=== PATIENT | female | born 1940 | race Caucasian/White ===

== ENCOUNTER 2021-09-05 09:44 | Emergency (ER) | payer MEDICARE, BC ==
[2021-09-05 10:40] LABS: BLOOD UREA NITROGEN,BUN 16 mg/dL (7.0-18.0); CARBON DIOXIDE,CO2 27.1 mmol/L (21.0-32.0); CHLORIDE,CL 104 mmol/L (98-107); GLUCOSE RANDOM 86 mg/dL (74-106); POTASSIUM,K 3.7 mmol/L (3.5-5.1); SODIUM,NA 141 mmol/L (136-145)
[2021-09-05] MEDS: Sodium Chloride 0.9% 2.5 ML Syringe FLUSH PRN (10:40)
[2021-09-05] MEDS: Sodium Chloride 0.9% 10 ML Syringe FLUSH PRN (10:42)
[2021-09-05 10:48] LABS: CORONAVIRUS COVID-19 NAA NEGATIVE (NEGATIVE); INFLUENZA A NAA NEGATIVE (NEGATIVE); INFLUENZA B NAA NEGATIVE (NEGATIVE)
[2021-09-05] MEDS: Albuterol/Ipratropium 3.0-0.5 MG/3 ML Neb Soln NEB ONE (11:24)
[2021-09-05] MEDS: Acetaminophen 325 MG Tab PO ONE (11:52)
[2021-09-05] MEDS: methylPREDNISolone Sodium Succinate 125 MG/2 ML SDV IVPUSH ONE (12:36)
[2021-09-05] MEDS: Albuterol 0.5% 5 MG/ML Neb Soln 20 ML Bottle NEB ONE (12:40)
== END 2021-09-05 14:18 | disposition home or self-care (01) ==
LOC: MW.ED 09:44
DX: J20.9 Acute bronchitis, unspecified (principal); I48.91 Unspecified atrial fibrillation; F17.200 Nicotine dependence, unspecified, uncomplicated; Z79.01 Long term (current) use of anticoagulants; Z79.899 Other long term (current) drug therapy; Z20.822 Contact with and (suspected) exposure to COVID-19
CPT/HCPCS: 0240U; 36415; 71045; 71275; 80053; 83880; 84484; 85025; 85379; 96374; 99285; A9270; J2930; J7620-GY

== ENCOUNTER 2023-07-17 16:54 | Inpatient (IN) | payer MEDICARE, BC ==
[2023-07-17] MEDS ORDERED: Diltiazem 100 MG in Sodium Chloride 0.9% 100 ML IV SCH (17:15)
[2023-07-17 17:17] LABS: HEMATOCRIT 42.8 % (37.0-47.0); HEMOGLOBIN 14.4 g/dL (12.0-16.0); MEAN CORPUSCULAR HEMOGLOBIN 35.8 pg (28.0-32.0); MEAN CORPUSCULAR HGB CONC 33.6 g/dL (32.0-36.0); MEAN CORPUSCULAR VOLUME 106.5 fL (83.0-99.0); MEAN PLATELET VOLUME 9.4 fL (9.4-12.3); PLATELET COUNT,PLT 215 K/uL (150-400); RED BLOOD CELL COUNT 4.02 M/uL (4.10-5.30); WHITE BLOOD CELL COUNT,WBC 20.93 K/uL (3.9-11.3)
[2023-07-17 17:24] LABS: INR 1.05 (0.86-1.11)
[2023-07-17] MEDS ORDERED: Diltiazem 25 MG/5 ML SDV IVPUSH ONE ×2 (17:53→17:54)
[2023-07-17] MEDS ORDERED: Sodium Chloride 0.9% 1,000 ML IV ONE (17:55)
[2023-07-17] MEDS ORDERED: cefTRIAXone 1 GM in Sodium Chloride 0.9% 50 ML IV ONE (17:55)
[2023-07-17 18:10] LABS: LACTIC ACID 3.5 mmol/L (0.4-2.0)
[2023-07-17] MEDS ORDERED: Magnesium Sulfate/Water 2 GM in Premix Bag 1 BAG IV ONE (18:28)
[2023-07-17 18:31] LABS: BAND ABSOLUTE MAN 0.84; BAND PERCENT MAN 4 %; LYMPHOCYTES ABSOLUTE MAN 2.09 K/uL (1.00-4.80); LYMPHOCYTES PERCENT MAN 10 % (24-44); MONOCYTES ABSOLUTE MAN 0.84 K/uL (0.00-0.80); MONOCYTES PERCENT MAN 4 % (0-8); SEG NEUTROPHILS ABSOLUTE MAN 17.16 K/uL (1.80-7.70); SEG NEUTROPHILS PERCENT MAN 82 % (41-71)
[2023-07-17] MEDS ORDERED: Azithromycin 500 MG in Sodium Chloride 0.9% 250 ML IV ONE (18:41)
[2023-07-17] MEDS ORDERED: Albuterol/Ipratropium 3.0-0.5 MG/3 ML Neb Soln NEB ONE (18:45)
[2023-07-17 19:13] LABS: A/G RATIO 0.6 (0.9-1.6); ALBUMIN 2.5 g/dL (3.4-5.0); BILIRUBIN TOTAL 1.4 mg/dL (0.2-1.0); CALCIUM 8.7 mg/dL (8.5-10.1); CARBON DIOXIDE,CO2 20.9 mmol/L (21.0-32.0); CREATININE 1.1 mg/dL (0.6-1.0); EST CRCL DRUG DOSING (CG) 30.16 mL/min; MAGNESIUM 2.1 mg/dL (1.8-2.4); POTASSIUM,K 4.5 mmol/L (3.5-5.1); PROTEIN TOTAL,TP 6.7 g/dL (6.4-8.2); TSH ULTRASENSITIVE 2.32 uIU/mL (0.36-3.74)
[2023-07-17 19:40] LABS: CORONAVIRUS COVID-19 NAA NEGATIVE (NEGATIVE); INFLUENZA A NAA NEGATIVE (NEGATIVE); INFLUENZA B NAA NEGATIVE (NEGATIVE); RESPIRATORY SYNCYTIAL VIR NAA NEGATIVE (NEGATIVE)
[2023-07-17] MEDS ORDERED: Albuterol/Ipratropium 3.0-0.5 MG/3 ML Neb Soln NEB PRN (19:50)
[2023-07-17 19:53] LABS: APPEARANCE,URINE SLT CLOUDY; COLOR,URINE YELLOW; GLUCOSE,URINE NEGATIVE (NEGATIVE); KETONES,URINE 15 mg/dL (NEGATIVE); LEUKOCYTE ESTERASE,URINE NEGATIVE (NEGATIVE); NITRITE,URINE NEGATIVE (NEGATIVE); OCCULT BLOOD,URINE SMALL (NEGATIVE); PH,URINE 5.5 (5.0-8.0); PROTEIN,URINE 100 mg/dL (NEGATIVE); UROBILINOGEN,URINE 0.2 EU/dL (<2.0)
[2023-07-17] MEDS ORDERED: Piperacillin/Tazobactam 4.5 GM in Sodium Chloride 0.9% 100 ML IV SCH (20:00)
[2023-07-17 20:19] LABS: BILIRUBIN,URINE SMALL (NEGATIVE)
[2023-07-17 20:20] LABS: BACTERIA,URINE 2+ (NEGATIVE); EPITHELIAL CELLS,URINE FEW (NONE-FEW); MUCUS,URINE LIGHT (NONE-MOD)
[2023-07-17 20:21] LABS: HYALINE CASTS,URINE 0-2 (0-2/LPF)
[2023-07-17] MEDS ORDERED: Sodium Chloride 0.9% 2.5 ML Syringe FLUSH PRN (20:21)
[2023-07-17] MEDS ORDERED: Acetaminophen 650 MG Supp RECTAL PRN (20:21)
[2023-07-17] MEDS ORDERED: Sodium Chloride 0.9% 20 ML SDV IV PRN (20:21)
[2023-07-17] MEDS ORDERED: Acetaminophen 325 MG Tab PO PRN (20:21)
[2023-07-17] MEDS ORDERED: Sodium Chloride 0.9% 10 ML Syringe FLUSH PRN (20:21)
[2023-07-17] MEDS ORDERED: Pantoprazole 40 MG in Sodium Chloride 0.9% 10 ML IVPUSH SCH (20:30)
[2023-07-17] MEDS: Apixaban 5 MG Tab PO SCH (21:12)
[2023-07-17] MEDS: Piperacillin/Tazobactam 3.375 GM in Sodium Chloride 0.9% 100 ML IV SCH (21:29)
[2023-07-17 21:59] LABS: LACTIC ACID 3.2 mmol/L (0.4-2.0)
[2023-07-17] MEDS ORDERED: Digoxin 500 MCG/2 ML Amp IVPUSH ONE (23:54)
[2023-07-17] MEDS ORDERED: Lactated Ringers 600 ML IV ONE (23:57)
[2023-07-18] MEDS: Diltiazem 100 MG in Sodium Chloride 0.9% 100 ML IV SCH ×2 (00:15→08:16)
[2023-07-18] MEDS ORDERED: Metoprolol Tartrate 5 MG/5 ML SDV IVPUSH PRN (01:00)
[2023-07-18] MEDS: Hydrocortisone Sodium Succinate 100 MG/2 ML SDV IVPUSH SCH ×3 (01:07→16:15)
[2023-07-18] MEDS ORDERED: Furosemide 40 MG/4 ML VIAL IVPUSH ONE (01:55)
[2023-07-18] MEDS: Piperacillin/Tazobactam 3.375 GM in Sodium Chloride 0.9% 100 ML IV SCH ×2 (02:22→07:41)
[2023-07-18 05:57] LABS: HEMATOCRIT 38.1 % (37.0-47.0); HEMOGLOBIN 12.5 g/dL (12.0-16.0); MEAN CORPUSCULAR HEMOGLOBIN 35.4 pg (28.0-32.0); MEAN CORPUSCULAR HGB CONC 32.8 g/dL (32.0-36.0); MEAN CORPUSCULAR VOLUME 107.9 fL (83.0-99.0); MEAN PLATELET VOLUME 9.6 fL (9.4-12.3); PLATELET COUNT,PLT 172 K/uL (150-400); RED BLOOD CELL COUNT 3.53 M/uL (4.10-5.30)
[2023-07-18 06:29] LABS: A/G RATIO 0.6 (0.9-1.6); ALBUMIN 2.2 g/dL (3.4-5.0); BILIRUBIN TOTAL 1.3 mg/dL (0.2-1.0); CALCIUM 7.8 mg/dL (8.5-10.1); CARBON DIOXIDE,CO2 22.8 mmol/L (21.0-32.0); CREATININE 1.1 mg/dL (0.6-1.0); EST CRCL DRUG DOSING (CG) 32.2 mL/min; MAGNESIUM 2.3 mg/dL (1.8-2.4); PHOSPHORUS 2.7 mg/dL (2.6-4.7); POTASSIUM,K 4.2 mmol/L (3.5-5.1)
[2023-07-18 06:34] LABS: BAND PERCENT MAN 2 %; LYMPHOCYTES PERCENT MAN 2 % (24-44); MONOCYTES PERCENT MAN 3 % (0-8); SEG NEUTROPHILS PERCENT MAN 93 % (41-71)
[2023-07-18] MEDS ORDERED: Piperacillin/Tazobactam 4.5 GM in Sodium Chloride 0.9% 100 ML IV SCH (08:00)
[2023-07-18] MEDS: Digoxin 250 MCG Tab PO SCH (08:08)
[2023-07-18] MEDS: Apixaban 5 MG Tab PO SCH ×2 (08:08→20:28)
[2023-07-18] MEDS: Azithromycin 500 MG in Sodium Chloride 0.9% 250 ML IV SCH (09:02)
[2023-07-18] MEDS: Diltiazem IR 30 MG Tab PO SCH ×3 (09:02→17:51)
[2023-07-18] MEDS: Tiotropium Bromide 4 GM Inhalation Spray (2.5mcg/1 dose; 10 doses) INH SCH (09:47)
[2023-07-18] MEDS: Formoterol/Mometasone 200-5 MCG 8.8 GM Inhaler INH SCH ×2 (09:48→20:38)
[2023-07-18] MEDS: Albuterol/Ipratropium 3.0-0.5 MG/3 ML Neb Soln NEB SCH ×4 (12:31→21:12)
[2023-07-18] MEDS: Pantoprazole 40 MG Tab.CR PO SCH (20:28)
[2023-07-18] MEDS: Piperacillin/Tazobactam 4.5 GM in Sodium Chloride 0.9% 100 ML IV SCH (20:30)
[2023-07-19] MEDS: Hydrocortisone Sodium Succinate 100 MG/2 ML SDV IVPUSH SCH ×3 (00:12→20:19)
[2023-07-19] MEDS: Diltiazem IR 30 MG Tab PO SCH ×3 (00:13→11:08)
[2023-07-19] MEDS: Albuterol/Ipratropium 3.0-0.5 MG/3 ML Neb Soln NEB SCH ×5 (01:16→21:57)
[2023-07-19] MEDS: Albuterol 0.083% 2.5 MG/3 ML Neb Soln NEB PRN (04:00)
[2023-07-19 06:11] LABS: BASOPHILS ABSOLUTE AUTO 0.06 K/uL (0.00-0.20); BASOPHILS PERCENT AUTO 0.3 % (0.0-1.0); EOSINOPHILS ABSOLUTE AUTO 0.06 K/uL (0.00-0.45); EOSINOPHILS PERCENT AUTO 0.3 % (0.0-6.0); HEMATOCRIT 34.5 % (37.0-47.0); HEMOGLOBIN 11.7 g/dL (12.0-16.0); IMMATURE GRAN ABSOLUTE AUTO 0.17 K/uL (0.00-0.05); IMMATURE GRAN PERCENT AUTO 0.9 % (0.0-0.4); LYMPHOCYTES ABSOLUTE AUTO 0.14 K/uL (1.00-4.80); LYMPHOCYTES PERCENT AUTO 0.8 % (24.0-44.0); MEAN CORPUSCULAR HEMOGLOBIN 35.2 pg (28.0-32.0); MEAN CORPUSCULAR HGB CONC 33.9 g/dL (32.0-36.0); MEAN CORPUSCULAR VOLUME 103.9 fL (83.0-99.0); MEAN PLATELET VOLUME 9.4 fL (9.4-12.3); MONOCYTES ABSOLUTE AUTO 0.65 K/uL (0.00-0.80); MONOCYTES PERCENT AUTO 3.6 % (0.0-8.0); NEUTROPHILS ABSOLUTE AUTO 17.13 K/uL (1.80-7.70); NEUTROPHILS PERCENT AUTO 94.1 % (41.0-71.0); PLATELET COUNT,PLT 188 K/uL (150-400); RED BLOOD CELL COUNT 3.32 M/uL (4.10-5.30); WHITE BLOOD CELL COUNT,WBC 18.21 K/uL (3.9-11.3)
[2023-07-19 06:37] LABS: CALCIUM 7.8 mg/dL (8.5-10.1); CARBON DIOXIDE,CO2 23.7 mmol/L (21.0-32.0); EST CRCL DRUG DOSING (CG) 35.7 mL/min; MAGNESIUM 2.5 mg/dL (1.8-2.4); POTASSIUM,K 3.2 mmol/L (3.5-5.1)
[2023-07-19] MEDS: Piperacillin/Tazobactam 4.5 GM in Sodium Chloride 0.9% 100 ML IV SCH ×2 (07:34→20:20)
[2023-07-19] MEDS ORDERED: Potassium Chloride 20 MEQ Tab.ER PO ONE ×2 (08:03→10:14)
[2023-07-19] MEDS: Apixaban 5 MG Tab PO SCH ×2 (08:25→20:19)
[2023-07-19] MEDS: Digoxin 250 MCG Tab PO SCH (08:25)
[2023-07-19] MEDS: Azithromycin 500 MG in Sodium Chloride 0.9% 250 ML IV SCH (08:25)
[2023-07-19] MEDS: Tiotropium Bromide 4 GM Inhalation Spray (2.5mcg/1 dose; 10 doses) INH SCH (09:06)
[2023-07-19] MEDS: Formoterol/Mometasone 200-5 MCG 8.8 GM Inhaler INH SCH ×2 (09:06→20:23)
[2023-07-19] MEDS: Acetaminophen 325 MG Tab PO SCH ×3 (11:05→21:56)
[2023-07-19] MEDS ORDERED: guaiFENesin 600 MG Tab.ER PO ONE (13:14)
[2023-07-19] MEDS ORDERED: Diltiazem 180 MG Cap.CD PO SCH (13:15)
[2023-07-19] MEDS: Ondansetron 4 MG/2 ML SDV IVPUSH PRN (17:07)
[2023-07-19] MEDS: Diltiazem 180 MG Cap.CD PO SCH (17:08)
[2023-07-19] MEDS ORDERED: Albuterol/Ipratropium 3.0-0.5 MG/3 ML Neb Soln NEB SCH (19:00)
[2023-07-19] MEDS: Pantoprazole 40 MG Tab.CR PO SCH (20:19)
[2023-07-20] MEDS: Acetaminophen 325 MG Tab PO SCH ×4 (04:25→22:25)
[2023-07-20 05:58] LABS: BASOPHILS ABSOLUTE AUTO 0.04 K/uL (0.00-0.20); BASOPHILS PERCENT AUTO 0.2 % (0.0-1.0); HEMOGLOBIN 10.8 g/dL (12.0-16.0); IMMATURE GRAN PERCENT AUTO 1.2 % (0.0-0.4); LYMPHOCYTES ABSOLUTE AUTO 0.25 K/uL (1.00-4.80); LYMPHOCYTES PERCENT AUTO 1.4 % (24.0-44.0); MEAN CORPUSCULAR HEMOGLOBIN 35.5 pg (28.0-32.0); MEAN CORPUSCULAR HGB CONC 33.8 g/dL (32.0-36.0); MEAN CORPUSCULAR VOLUME 105.3 fL (83.0-99.0); MEAN PLATELET VOLUME 9.4 fL (9.4-12.3); MONOCYTES ABSOLUTE AUTO 1.03 K/uL (0.00-0.80); NEUTROPHILS ABSOLUTE AUTO 15.76 K/uL (1.80-7.70); NEUTROPHILS PERCENT AUTO 91.2 % (41.0-71.0); PLATELET COUNT,PLT 177 K/uL (150-400); RED BLOOD CELL COUNT 3.04 M/uL (4.10-5.30); WHITE BLOOD CELL COUNT,WBC 17.28 K/uL (3.9-11.3)
[2023-07-20 06:30] LABS: A/G RATIO 0.5 (0.9-1.6); ALBUMIN 2.1 g/dL (3.4-5.0); BILIRUBIN TOTAL 0.6 mg/dL (0.2-1.0); CALCIUM 7.6 mg/dL (8.5-10.1); CARBON DIOXIDE,CO2 23.4 mmol/L (21.0-32.0); CREATININE 0.8 mg/dL (0.6-1.0); EST CRCL DRUG DOSING (CG) 47.62 mL/min; POTASSIUM,K 4.8 mmol/L (3.5-5.1)
[2023-07-20] MEDS: Albuterol/Ipratropium 3.0-0.5 MG/3 ML Neb Soln NEB SCH (06:44)
[2023-07-20] MEDS: Hydrocortisone Sodium Succinate 100 MG/2 ML SDV IVPUSH SCH (07:24)
[2023-07-20] MEDS: Piperacillin/Tazobactam 4.5 GM in Sodium Chloride 0.9% 100 ML IV SCH ×2 (07:25→15:17)
[2023-07-20] MEDS: Digoxin 250 MCG Tab PO SCH (08:02)
[2023-07-20] MEDS: Diltiazem 180 MG Cap.CD PO SCH (08:02)
[2023-07-20] MEDS: Apixaban 5 MG Tab PO SCH ×2 (08:03→21:15)
[2023-07-20] MEDS: Azithromycin 500 MG in Sodium Chloride 0.9% 250 ML IV SCH (08:03)
[2023-07-20] MEDS: Tiotropium Bromide 4 GM Inhalation Spray (2.5mcg/1 dose; 10 doses) INH SCH (08:46)
[2023-07-20] MEDS: Formoterol/Mometasone 200-5 MCG 8.8 GM Inhaler INH SCH ×2 (08:46→21:16)
[2023-07-20] MEDS ORDERED: Levalbuterol HCl 1.25 MG/3 ML Neb NEB PRN (10:30)
[2023-07-20] MEDS ORDERED: Furosemide 40 MG/4 ML VIAL IVPUSH ONE ×2 (10:49)
[2023-07-20] MEDS: Furosemide 20 MG Tab PO SCH (12:06)
[2023-07-20] MEDS: Albuterol 0.083% 2.5 MG/3 ML Neb Soln NEB PRN (12:07)
[2023-07-20] MEDS: Pantoprazole 40 MG Tab.CR PO SCH (21:15)
[2023-07-21] MEDS: Piperacillin/Tazobactam 4.5 GM in Sodium Chloride 0.9% 100 ML IV SCH ×3 (00:13→16:10)
[2023-07-21] MEDS: Acetaminophen 325 MG Tab PO SCH ×5 (04:02→23:39)
[2023-07-21 06:12] LABS: BASOPHILS ABSOLUTE AUTO 0.02 K/uL (0.00-0.20); BASOPHILS PERCENT AUTO 0.1 % (0.0-1.0); EOSINOPHILS ABSOLUTE AUTO 0.03 K/uL (0.00-0.45); EOSINOPHILS PERCENT AUTO 0.2 % (0.0-6.0); HEMOGLOBIN 10.8 g/dL (12.0-16.0); IMMATURE GRAN ABSOLUTE AUTO 0.11 K/uL (0.00-0.05); IMMATURE GRAN PERCENT AUTO 0.8 % (0.0-0.4); LYMPHOCYTES ABSOLUTE AUTO 0.54 K/uL (1.00-4.80); MEAN CORPUSCULAR HEMOGLOBIN 35.1 pg (28.0-32.0); MEAN CORPUSCULAR HGB CONC 32.7 g/dL (32.0-36.0); MEAN CORPUSCULAR VOLUME 107.1 fL (83.0-99.0); MEAN PLATELET VOLUME 9.4 fL (9.4-12.3); MONOCYTES ABSOLUTE AUTO 1.11 K/uL (0.00-0.80); MONOCYTES PERCENT AUTO 8.1 % (0.0-8.0); NEUTROPHILS ABSOLUTE AUTO 11.85 K/uL (1.80-7.70); NEUTROPHILS PERCENT AUTO 86.8 % (41.0-71.0); PLATELET COUNT,PLT 212 K/uL (150-400); RED BLOOD CELL COUNT 3.08 M/uL (4.10-5.30); WHITE BLOOD CELL COUNT,WBC 13.66 K/uL (3.9-11.3)
[2023-07-21 06:33] LABS: CALCIUM 6.8 mg/dL (8.5-10.1); CARBON DIOXIDE,CO2 25.1 mmol/L (21.0-32.0); CREATININE 0.8 mg/dL (0.6-1.0); EST CRCL DRUG DOSING (CG) 47.62 mL/min
[2023-07-21] MEDS: Albuterol/Ipratropium 3.0-0.5 MG/3 ML Neb Soln NEB PRN (08:14)
[2023-07-21] MEDS: Formoterol/Mometasone 200-5 MCG 8.8 GM Inhaler INH SCH ×2 (08:15→21:01)
[2023-07-21] MEDS: Tiotropium Bromide 4 GM Inhalation Spray (2.5mcg/1 dose; 10 doses) INH SCH (08:16)
[2023-07-21] MEDS: Diltiazem 180 MG Cap.CD PO SCH (08:16)
[2023-07-21] MEDS: Digoxin 125 MCG Tab PO SCH (08:17)
[2023-07-21] MEDS: Apixaban 5 MG Tab PO SCH ×2 (08:17→21:01)
[2023-07-21] MEDS: Furosemide 20 MG Tab PO SCH (08:17)
[2023-07-21] MEDS: predniSONE 20 MG Tab PO SCH (08:17)
[2023-07-21] MEDS: Azithromycin 500 MG in Sodium Chloride 0.9% 250 ML IV SCH (08:18)
[2023-07-21] MEDS: Pantoprazole 40 MG Tab.CR PO SCH (21:01)
[2023-07-22] MEDS: Piperacillin/Tazobactam 4.5 GM in Sodium Chloride 0.9% 100 ML IV SCH ×3 (00:16→16:36)
[2023-07-22 06:33] LABS: BASOPHILS ABSOLUTE AUTO 0.02 K/uL (0.00-0.20); BASOPHILS PERCENT AUTO 0.2 % (0.0-1.0); EOSINOPHILS ABSOLUTE AUTO 0.01 K/uL (0.00-0.45); EOSINOPHILS PERCENT AUTO 0.1 % (0.0-6.0); HEMATOCRIT 33.1 % (37.0-47.0); IMMATURE GRAN ABSOLUTE AUTO 0.12 K/uL (0.00-0.05); IMMATURE GRAN PERCENT AUTO 0.9 % (0.0-0.4); LYMPHOCYTES PERCENT AUTO 6.1 % (24.0-44.0); MEAN CORPUSCULAR HEMOGLOBIN 35.3 pg (28.0-32.0); MEAN CORPUSCULAR HGB CONC 33.2 g/dL (32.0-36.0); MEAN CORPUSCULAR VOLUME 106.1 fL (83.0-99.0); MEAN PLATELET VOLUME 9.6 fL (9.4-12.3); MONOCYTES ABSOLUTE AUTO 0.82 K/uL (0.00-0.80); MONOCYTES PERCENT AUTO 6.3 % (0.0-8.0); NEUTROPHILS ABSOLUTE AUTO 11.33 K/uL (1.80-7.70); NEUTROPHILS PERCENT AUTO 86.4 % (41.0-71.0); PLATELET COUNT,PLT 260 K/uL (150-400); RED BLOOD CELL COUNT 3.12 M/uL (4.10-5.30)
[2023-07-22 07:03] LABS: A/G RATIO 0.5 (0.9-1.6); ALBUMIN 1.9 g/dL (3.4-5.0); BILIRUBIN TOTAL 0.6 mg/dL (0.2-1.0); CALCIUM 7.1 mg/dL (8.5-10.1); CARBON DIOXIDE,CO2 26.3 mmol/L (21.0-32.0); CREATININE 0.7 mg/dL (0.6-1.0); EST CRCL DRUG DOSING (CG) 54.43 mL/min; MAGNESIUM 2.6 mg/dL (1.8-2.4); POTASSIUM,K 3.8 mmol/L (3.5-5.1); PROTEIN TOTAL,TP 5.6 g/dL (6.4-8.2)
[2023-07-22] MEDS: predniSONE 20 MG Tab PO SCH (08:46)
[2023-07-22] MEDS: Furosemide 20 MG Tab PO SCH (08:46)
[2023-07-22] MEDS: Digoxin 125 MCG Tab PO SCH (08:46)
[2023-07-22] MEDS: Diltiazem 180 MG Cap.CD PO SCH (08:46)
[2023-07-22] MEDS: Formoterol/Mometasone 200-5 MCG 8.8 GM Inhaler INH SCH ×2 (08:47→21:26)
[2023-07-22] MEDS: Tiotropium Bromide 4 GM Inhalation Spray (2.5mcg/1 dose; 10 doses) INH SCH (08:47)
[2023-07-22] MEDS: Acetaminophen 325 MG Tab PO PRN (16:34)
[2023-07-22] MEDS: Pantoprazole 40 MG Tab.CR PO SCH (21:26)
[2023-07-23] MEDS: Piperacillin/Tazobactam 4.5 GM in Sodium Chloride 0.9% 100 ML IV SCH ×4 (00:11→23:08)
[2023-07-23] MEDS: Albuterol/Ipratropium 3.0-0.5 MG/3 ML Neb Soln NEB PRN (04:30)
[2023-07-23 06:01] LABS: BASOPHILS ABSOLUTE AUTO 0.04 K/uL (0.00-0.20); BASOPHILS PERCENT AUTO 0.3 % (0.0-1.0); HEMATOCRIT 38.4 % (37.0-47.0); HEMOGLOBIN 12.7 g/dL (12.0-16.0); IMMATURE GRAN ABSOLUTE AUTO 0.18 K/uL (0.00-0.05); IMMATURE GRAN PERCENT AUTO 1.3 % (0.0-0.4); LYMPHOCYTES ABSOLUTE AUTO 1.63 K/uL (1.00-4.80); LYMPHOCYTES PERCENT AUTO 11.8 % (24.0-44.0); MEAN CORPUSCULAR HEMOGLOBIN 34.5 pg (28.0-32.0); MEAN CORPUSCULAR HGB CONC 33.1 g/dL (32.0-36.0); MEAN CORPUSCULAR VOLUME 104.3 fL (83.0-99.0); MEAN PLATELET VOLUME 9.6 fL (9.4-12.3); MONOCYTES ABSOLUTE AUTO 0.83 K/uL (0.00-0.80); NEUTROPHILS ABSOLUTE AUTO 11.13 K/uL (1.80-7.70); NEUTROPHILS PERCENT AUTO 80.6 % (41.0-71.0); PLATELET COUNT,PLT 371 K/uL (150-400); RED BLOOD CELL COUNT 3.68 M/uL (4.10-5.30); WHITE BLOOD CELL COUNT,WBC 13.81 K/uL (3.9-11.3)
[2023-07-23 06:34] LABS: ALBUMIN 2.3 g/dL (3.4-5.0); BILIRUBIN TOTAL 0.7 mg/dL (0.2-1.0); CALCIUM 7.8 mg/dL (8.5-10.1); CARBON DIOXIDE,CO2 25.8 mmol/L (21.0-32.0); CREATININE 0.8 mg/dL (0.6-1.0); EST CRCL DRUG DOSING (CG) 47.62 mL/min; MAGNESIUM 2.6 mg/dL (1.8-2.4); POTASSIUM,K 3.7 mmol/L (3.5-5.1); PROTEIN TOTAL,TP 6.5 g/dL (6.4-8.2)
[2023-07-23 06:47] LABS: A/G RATIO 0.6 (0.9-1.6)
[2023-07-23] MEDS: Digoxin 125 MCG Tab PO SCH (08:40)
[2023-07-23] MEDS: Diltiazem 180 MG Cap.CD PO SCH (08:40)
[2023-07-23] MEDS: Furosemide 20 MG Tab PO SCH (08:40)
[2023-07-23] MEDS: Folic Acid 1 MG Tab PO SCH (08:40)
[2023-07-23] MEDS: Formoterol/Mometasone 200-5 MCG 8.8 GM Inhaler INH SCH ×2 (08:41→20:51)
[2023-07-23] MEDS: predniSONE 20 MG Tab PO SCH (08:41)
[2023-07-23] MEDS: Tiotropium Bromide 4 GM Inhalation Spray (2.5mcg/1 dose; 10 doses) INH SCH (08:41)
[2023-07-23] MEDS ORDERED: Apixaban 5 MG Tab PO SCH (09:00)
[2023-07-23] MEDS: Pantoprazole 40 MG in Sodium Chloride 0.9% 10 ML IVPUSH SCH ×2 (09:59→20:51)
[2023-07-23] MEDS: Sucralfate Suspension 1 GM/10 ML Cup PO SCH ×3 (12:45→20:51)
[2023-07-23] MEDS: methylPREDNISolone Sodium Succinate 40 MG/1 ML SDV IVPUSH SCH (18:33)
[2023-07-23 18:34] LABS: HEMATOCRIT 37.4 % (37.0-47.0); HEMOGLOBIN 12.5 g/dL (12.0-16.0)
[2023-07-23] MEDS: atorvaSTATin 20 MG Tab PO SCH (20:51)
[2023-07-24 06:13] LABS: BASOPHILS ABSOLUTE AUTO 0.01 K/uL (0.00-0.20); BASOPHILS PERCENT AUTO 0.1 % (0.0-1.0); HEMATOCRIT 35.4 % (37.0-47.0); HEMOGLOBIN 11.7 g/dL (12.0-16.0); IMMATURE GRAN ABSOLUTE AUTO 0.16 K/uL (0.00-0.05); IMMATURE GRAN PERCENT AUTO 1.3 % (0.0-0.4); LYMPHOCYTES ABSOLUTE AUTO 0.61 K/uL (1.00-4.80); MEAN CORPUSCULAR HGB CONC 33.1 g/dL (32.0-36.0); MEAN PLATELET VOLUME 9.6 fL (9.4-12.3); MONOCYTES ABSOLUTE AUTO 0.38 K/uL (0.00-0.80); MONOCYTES PERCENT AUTO 3.1 % (0.0-8.0); NEUTROPHILS ABSOLUTE AUTO 11.06 K/uL (1.80-7.70); NEUTROPHILS PERCENT AUTO 90.5 % (41.0-71.0); PLATELET COUNT,PLT 387 K/uL (150-400); RED BLOOD CELL COUNT 3.34 M/uL (4.10-5.30); WHITE BLOOD CELL COUNT,WBC 12.22 K/uL (3.9-11.3)
[2023-07-24] MEDS: Sucralfate Suspension 1 GM/10 ML Cup PO SCH ×5 (06:22→20:55)
[2023-07-24] MEDS: methylPREDNISolone Sodium Succinate 40 MG/1 ML SDV IVPUSH SCH ×2 (06:22→18:13)
[2023-07-24 06:36] LABS: A/G RATIO 0.5 (0.9-1.6); ALBUMIN 1.9 g/dL (3.4-5.0); BILIRUBIN TOTAL 0.5 mg/dL (0.2-1.0); CALCIUM 7.1 mg/dL (8.5-10.1); CARBON DIOXIDE,CO2 26.2 mmol/L (21.0-32.0); CREATININE 0.7 mg/dL (0.6-1.0); EST CRCL DRUG DOSING (CG) 54.43 mL/min; MAGNESIUM 2.5 mg/dL (1.8-2.4); POTASSIUM,K 3.7 mmol/L (3.5-5.1); PROTEIN TOTAL,TP 5.5 g/dL (6.4-8.2)
[2023-07-24] MEDS: Piperacillin/Tazobactam 4.5 GM in Sodium Chloride 0.9% 100 ML IV SCH (07:58)
[2023-07-24] MEDS: Furosemide 20 MG Tab PO SCH (08:01)
[2023-07-24] MEDS: Folic Acid 1 MG Tab PO SCH (08:01)
[2023-07-24] MEDS: Formoterol/Mometasone 200-5 MCG 8.8 GM Inhaler INH SCH ×2 (08:02→20:56)
[2023-07-24] MEDS: Digoxin 125 MCG Tab PO SCH (08:02)
[2023-07-24] MEDS: Diltiazem 180 MG Cap.CD PO SCH (08:02)
[2023-07-24] MEDS: Tiotropium Bromide 4 GM Inhalation Spray (2.5mcg/1 dose; 10 doses) INH SCH (08:03)
[2023-07-24] MEDS: Pantoprazole 40 MG in Sodium Chloride 0.9% 10 ML IVPUSH SCH ×2 (09:38→20:55)
[2023-07-24] MEDS: Levofloxacin 750 MG Tab PO SCH (16:00)
[2023-07-24] MEDS: atorvaSTATin 20 MG Tab PO SCH (20:54)
[2023-07-25 05:52] LABS: BASOPHILS ABSOLUTE AUTO 0.03 K/uL (0.00-0.20); BASOPHILS PERCENT AUTO 0.2 % (0.0-1.0); HEMATOCRIT 33.7 % (37.0-47.0); HEMOGLOBIN 11.5 g/dL (12.0-16.0); IMMATURE GRAN ABSOLUTE AUTO 0.17 K/uL (0.00-0.05); IMMATURE GRAN PERCENT AUTO 1.1 % (0.0-0.4); LYMPHOCYTES ABSOLUTE AUTO 0.72 K/uL (1.00-4.80); LYMPHOCYTES PERCENT AUTO 4.5 % (24.0-44.0); MEAN CORPUSCULAR HEMOGLOBIN 35.2 pg (28.0-32.0); MEAN CORPUSCULAR HGB CONC 34.1 g/dL (32.0-36.0); MEAN CORPUSCULAR VOLUME 103.1 fL (83.0-99.0); MEAN PLATELET VOLUME 9.3 fL (9.4-12.3); MONOCYTES ABSOLUTE AUTO 0.57 K/uL (0.00-0.80); MONOCYTES PERCENT AUTO 3.5 % (0.0-8.0); NEUTROPHILS ABSOLUTE AUTO 14.65 K/uL (1.80-7.70); NEUTROPHILS PERCENT AUTO 90.7 % (41.0-71.0); PLATELET COUNT,PLT 409 K/uL (150-400); RED BLOOD CELL COUNT 3.27 M/uL (4.10-5.30); WHITE BLOOD CELL COUNT,WBC 16.14 K/uL (3.9-11.3)
[2023-07-25 06:30] LABS: CALCIUM 7.4 mg/dL (8.5-10.1); CREATININE 0.7 mg/dL (0.6-1.0); EST CRCL DRUG DOSING (CG) 54.43 mL/min; MAGNESIUM 2.3 mg/dL (1.8-2.4); POTASSIUM,K 3.8 mmol/L (3.5-5.1)
[2023-07-25] MEDS: Sucralfate Suspension 1 GM/10 ML Cup PO SCH ×4 (06:39→21:07)
[2023-07-25] MEDS: methylPREDNISolone Sodium Succinate 40 MG/1 ML SDV IVPUSH SCH (06:39)
[2023-07-25] MEDS: Digoxin 125 MCG Tab PO SCH (09:24)
[2023-07-25] MEDS: Folic Acid 1 MG Tab PO SCH (09:24)
[2023-07-25] MEDS: Diltiazem 180 MG Cap.CD PO SCH (09:28)
[2023-07-25] MEDS: Furosemide 20 MG Tab PO SCH (09:28)
[2023-07-25] MEDS: Pantoprazole 40 MG in Sodium Chloride 0.9% 10 ML IVPUSH SCH ×2 (09:29→21:08)
[2023-07-25] MEDS: Formoterol/Mometasone 200-5 MCG 8.8 GM Inhaler INH SCH ×2 (09:29→21:19)
[2023-07-25] MEDS: Tiotropium Bromide 4 GM Inhalation Spray (2.5mcg/1 dose; 10 doses) INH SCH (09:29)
[2023-07-25] MEDS: Levofloxacin 750 MG Tab PO SCH (16:50)
[2023-07-25] MEDS: atorvaSTATin 20 MG Tab PO SCH (21:07)
[2023-07-25] MEDS: Apixaban 2.5 MG Tab PO SCH (21:07)
[2023-07-26 06:04] LABS: BASOPHILS ABSOLUTE AUTO 0.04 K/uL (0.00-0.20); BASOPHILS PERCENT AUTO 0.2 % (0.0-1.0); HEMATOCRIT 34.2 % (37.0-47.0); HEMOGLOBIN 11.6 g/dL (12.0-16.0); IMMATURE GRAN ABSOLUTE AUTO 0.26 K/uL (0.00-0.05); IMMATURE GRAN PERCENT AUTO 1.4 % (0.0-0.4); LYMPHOCYTES ABSOLUTE AUTO 0.83 K/uL (1.00-4.80); LYMPHOCYTES PERCENT AUTO 4.5 % (24.0-44.0); MEAN CORPUSCULAR HEMOGLOBIN 34.8 pg (28.0-32.0); MEAN CORPUSCULAR HGB CONC 33.9 g/dL (32.0-36.0); MEAN CORPUSCULAR VOLUME 102.7 fL (83.0-99.0); MEAN PLATELET VOLUME 9.4 fL (9.4-12.3); MONOCYTES ABSOLUTE AUTO 0.91 K/uL (0.00-0.80); NEUTROPHILS ABSOLUTE AUTO 16.27 K/uL (1.80-7.70); NEUTROPHILS PERCENT AUTO 88.9 % (41.0-71.0); PLATELET COUNT,PLT 422 K/uL (150-400); RED BLOOD CELL COUNT 3.33 M/uL (4.10-5.30); WHITE BLOOD CELL COUNT,WBC 18.31 K/uL (3.9-11.3)
[2023-07-26 06:35] LABS: CALCIUM 7.4 mg/dL (8.5-10.1); CARBON DIOXIDE,CO2 23.4 mmol/L (21.0-32.0); CREATININE 0.7 mg/dL (0.6-1.0); EST CRCL DRUG DOSING (CG) 54.43 mL/min; MAGNESIUM 2.3 mg/dL (1.8-2.4); POTASSIUM,K 3.8 mmol/L (3.5-5.1)
[2023-07-26] MEDS: Acetaminophen 325 MG Tab PO PRN (06:43)
[2023-07-26] MEDS: Sucralfate Suspension 1 GM/10 ML Cup PO SCH ×4 (06:44→20:56)
[2023-07-26] MEDS ORDERED: predniSONE 20 MG Tab PO SCH (08:00)
[2023-07-26] MEDS: Diltiazem 180 MG Cap.CD PO SCH (09:38)
[2023-07-26] MEDS: Folic Acid 1 MG Tab PO SCH (09:39)
[2023-07-26] MEDS: Furosemide 20 MG Tab PO SCH (09:39)
[2023-07-26] MEDS: Apixaban 2.5 MG Tab PO SCH ×2 (09:40→21:00)
[2023-07-26] MEDS: Pantoprazole 40 MG in Sodium Chloride 0.9% 10 ML IVPUSH SCH (09:40)
[2023-07-26] MEDS: Digoxin 125 MCG Tab PO SCH (09:48)
[2023-07-26] MEDS: Formoterol/Mometasone 200-5 MCG 8.8 GM Inhaler INH SCH ×2 (09:51→21:09)
[2023-07-26] MEDS: Tiotropium Bromide 4 GM Inhalation Spray (2.5mcg/1 dose; 10 doses) INH SCH (10:00)
[2023-07-26] MEDS: Levofloxacin 750 MG Tab PO SCH (16:35)
[2023-07-26] MEDS: Pantoprazole 40 MG Tab.CR PO SCH (16:35)
[2023-07-26] MEDS: atorvaSTATin 20 MG Tab PO SCH (20:56)
[2023-07-27] MEDS: Pantoprazole 40 MG Tab.CR PO SCH ×2 (06:36→19:38)
[2023-07-27] MEDS: Sucralfate Suspension 1 GM/10 ML Cup PO SCH ×4 (06:36→22:53)
[2023-07-27] MEDS: Digoxin 125 MCG Tab PO SCH (08:44)
[2023-07-27] MEDS: predniSONE 5 MG Tab PO SCH (08:44)
[2023-07-27] MEDS: Apixaban 2.5 MG Tab PO SCH ×2 (08:44→20:43)
[2023-07-27] MEDS: Diltiazem 180 MG Cap.CD PO SCH (08:47)
[2023-07-27] MEDS: Tiotropium Bromide 4 GM Inhalation Spray (2.5mcg/1 dose; 10 doses) INH SCH (08:48)
[2023-07-27] MEDS: Folic Acid 1 MG Tab PO SCH (08:48)
[2023-07-27] MEDS: Furosemide 20 MG Tab PO SCH (08:48)
[2023-07-27] MEDS: Formoterol/Mometasone 200-5 MCG 8.8 GM Inhaler INH SCH ×2 (08:49→20:43)
[2023-07-27] MEDS: Ondansetron 4 MG/2 ML SDV IVPUSH PRN (12:43)
[2023-07-27] MEDS: Levofloxacin 750 MG Tab PO SCH (19:38)
[2023-07-27] MEDS: atorvaSTATin 20 MG Tab PO SCH (20:42)
[2023-07-28 05:48] LABS: HEMATOCRIT 36.5 % (37.0-47.0); HEMOGLOBIN 12.1 g/dL (12.0-16.0); MEAN CORPUSCULAR HEMOGLOBIN 34.4 pg (28.0-32.0); MEAN CORPUSCULAR HGB CONC 33.2 g/dL (32.0-36.0); MEAN CORPUSCULAR VOLUME 103.7 fL (83.0-99.0); MEAN PLATELET VOLUME 9.2 fL (9.4-12.3); PLATELET COUNT,PLT 376 K/uL (150-400); RED BLOOD CELL COUNT 3.52 M/uL (4.10-5.30)
[2023-07-28] MEDS: Sucralfate Suspension 1 GM/10 ML Cup PO SCH ×4 (06:30→20:12)
[2023-07-28] MEDS: Pantoprazole 40 MG Tab.CR PO SCH ×2 (06:30→17:15)
[2023-07-28] MEDS: Digoxin 125 MCG Tab PO SCH (08:22)
[2023-07-28] MEDS: predniSONE 5 MG Tab PO SCH (08:22)
[2023-07-28] MEDS: Diltiazem 180 MG Cap.CD PO SCH (08:23)
[2023-07-28] MEDS: Furosemide 20 MG Tab PO SCH (08:23)
[2023-07-28] MEDS: Apixaban 2.5 MG Tab PO SCH ×2 (08:23→20:12)
[2023-07-28] MEDS: Folic Acid 1 MG Tab PO SCH (08:24)
[2023-07-28] MEDS: Tiotropium Bromide 4 GM Inhalation Spray (2.5mcg/1 dose; 10 doses) INH SCH (08:26)
[2023-07-28] MEDS: Formoterol/Mometasone 200-5 MCG 8.8 GM Inhaler INH SCH ×2 (08:26→20:32)
[2023-07-28] MEDS: Levofloxacin 750 MG Tab PO SCH (17:15)
[2023-07-28] MEDS: atorvaSTATin 20 MG Tab PO SCH (20:12)
[2023-07-29] MEDS: Sucralfate Suspension 1 GM/10 ML Cup PO SCH ×4 (08:18→20:15)
[2023-07-29] MEDS: predniSONE 5 MG Tab PO SCH (08:18)
[2023-07-29] MEDS: Diltiazem 180 MG Cap.CD PO SCH (08:19)
[2023-07-29] MEDS: Furosemide 20 MG Tab PO SCH (08:19)
[2023-07-29] MEDS: Apixaban 2.5 MG Tab PO SCH ×2 (08:20→20:15)
[2023-07-29] MEDS: Pantoprazole 40 MG Tab.CR PO SCH ×2 (08:20→18:22)
[2023-07-29] MEDS: Folic Acid 1 MG Tab PO SCH (08:20)
[2023-07-29] MEDS: Formoterol/Mometasone 200-5 MCG 8.8 GM Inhaler INH SCH ×2 (08:21→20:13)
[2023-07-29] MEDS: Tiotropium Bromide 4 GM Inhalation Spray (2.5mcg/1 dose; 10 doses) INH SCH (08:21)
[2023-07-29] MEDS: Digoxin 125 MCG Tab PO SCH (08:22)
[2023-07-29] MEDS: Levofloxacin 750 MG Tab PO SCH (18:21)
[2023-07-29] MEDS: atorvaSTATin 20 MG Tab PO SCH (20:14)
[2023-07-30] MEDS: Pantoprazole 40 MG Tab.CR PO SCH (06:30)
[2023-07-30] MEDS: Sucralfate Suspension 1 GM/10 ML Cup PO SCH ×2 (06:30→11:45)
[2023-07-30] MEDS: predniSONE 5 MG Tab PO SCH (07:39)
[2023-07-30] MEDS: Formoterol/Mometasone 200-5 MCG 8.8 GM Inhaler INH SCH (08:05)
[2023-07-30] MEDS: Tiotropium Bromide 4 GM Inhalation Spray (2.5mcg/1 dose; 10 doses) INH SCH (08:06)
[2023-07-30] MEDS: Digoxin 125 MCG Tab PO SCH (08:07)
[2023-07-30] MEDS: Furosemide 20 MG Tab PO SCH (08:07)
[2023-07-30] MEDS: Apixaban 2.5 MG Tab PO SCH (08:08)
[2023-07-30] MEDS: Folic Acid 1 MG Tab PO SCH (08:08)
[2023-07-30] MEDS: Diltiazem 180 MG Cap.CD PO SCH (08:08)
== END 2023-07-30 13:00 | DRG 871 ==
LOC: MW.ED 16:54 → MW.ICU 19:31 → MW.MS 07-20 15:49
PROVIDERS: ADMIT Family Medicine; ATTEND Family Medicine
PROC: 0T9B70Z Drainage of Bladder with Drainage Device, Via Natural or Artificial Opening (ICD-10-PCS; principal; 2023-07-17)
PROC: 3E03329 Introduction of Other Anti-infective into Peripheral Vein, Percutaneous Approach (ICD-10-PCS; 2023-07-17)
DX: A41.9 Sepsis, unspecified organism (principal); J18.9 Pneumonia, unspecified organism; I48.91 Unspecified atrial fibrillation; I10 Essential (primary) hypertension; J44.9 Chronic obstructive pulmonary disease, unspecified; J96.01 Acute respiratory failure with hypoxia; J44.0 Chronic obstructive pulmonary disease with (acute) lower respiratory infection; D84.9 Immunodeficiency, unspecified; J44.1 Chronic obstructive pulmonary disease with (acute) exacerbation; I50.32 Chronic diastolic (congestive) heart failure; K92.2 Gastrointestinal hemorrhage, unspecified; R64 Cachexia; I48.0 Paroxysmal atrial fibrillation; Z66 Do not resuscitate; I11.0 Hypertensive heart disease with heart failure; M06.9 Rheumatoid arthritis, unspecified; R65.20 Severe sepsis without septic shock; J47.9 Bronchiectasis, uncomplicated; R73.9 Hyperglycemia, unspecified; Z11.52 Encounter for screening for COVID-19; Z79.899 Other long term (current) drug therapy; Z79.01 Long term (current) use of anticoagulants; Z79.51 Long term (current) use of inhaled steroids; Z87.891 Personal history of nicotine dependence; Z68.20 Body mass index [BMI] 20.0-20.9, adult
CPT/HCPCS: 0241U; 36415; 71045; 80048; 80053; 80162; 80202; 81001; 82272; 82947; 83605; 83690; 83735; 83880; 84100; 84443; 84484; 85014; 85018; 85025; 85027; 85610; 86850; 86900; 86901; 87040; 87086; 87324; 87641; 87899; 93005; 93306; 94640; 94664; 94667; 94668; 96365; 96366; 96368; 96375; 97110; 97161; 97530; 99291; 93010; 99223; 99231; 99232; 99233; 99238; A9270-GY; C9113; J0456; J0696; J1160; J1720; J1940; J2405; J2543; J2920; J3370; J3475; J3490; J7030; J7050; J7120; J7512; J7620-GY

== ENCOUNTER 2023-10-24 08:11 | Inpatient (IN) | payer MEDICARE, BC ==
[2023-10-24 08:31] LABS: BASOPHILS ABSOLUTE AUTO 0.04 K/uL (0.00-0.20); BASOPHILS PERCENT AUTO 0.2 % (0.0-1.0); HEMATOCRIT 39.7 % (37.0-47.0); HEMOGLOBIN 13.2 g/dL (12.0-16.0); IMMATURE GRAN ABSOLUTE AUTO 0.16 K/uL (0.00-0.05); IMMATURE GRAN PERCENT AUTO 0.8 % (0.0-0.4); LYMPHOCYTES ABSOLUTE AUTO 0.44 K/uL (1.00-4.80); LYMPHOCYTES PERCENT AUTO 2.2 % (24.0-44.0); MEAN CORPUSCULAR HEMOGLOBIN 33.1 pg (28.0-32.0); MEAN CORPUSCULAR HGB CONC 33.2 g/dL (32.0-36.0); MEAN CORPUSCULAR VOLUME 99.5 fL (83.0-99.0); MEAN PLATELET VOLUME 9.3 fL (9.4-12.3); MONOCYTES PERCENT AUTO 6.9 % (0.0-8.0); NEUTROPHILS PERCENT AUTO 89.9 % (41.0-71.0); PLATELET COUNT,PLT 262 K/uL (150-400); RED BLOOD CELL COUNT 3.99 M/uL (4.10-5.30); WHITE BLOOD CELL COUNT,WBC 20.34 K/uL (3.9-11.3)
[2023-10-24] MEDS: Sodium Chloride 0.9% 10 ML Syringe FLUSH PRN (08:42)
[2023-10-24] MEDS: Diltiazem 25 MG/5 ML SDV IVPUSH ONE ×2 (08:43→14:19)
[2023-10-24] MEDS: Sodium Chloride 0.9% 2.5 ML Syringe FLUSH PRN (08:43)
[2023-10-24 09:07] LABS: A/G RATIO 0.7 (0.9-1.6); ALBUMIN 3.2 g/dL (3.4-5.0); BILIRUBIN TOTAL 1.1 mg/dL (0.2-1.0); CALCIUM 9.5 mg/dL (8.5-10.1); CREATININE 0.8 mg/dL (0.6-1.0); EST CRCL DRUG DOSING (CG) 44.14 mL/min; POTASSIUM,K 4.6 mmol/L (3.5-5.1); PROTEIN TOTAL,TP 7.5 g/dL (6.4-8.2)
[2023-10-24] MEDS: Piperacillin/Tazobactam 4.5 GM in Sodium Chloride 0.9% 100 ML IV ONE (09:47)
[2023-10-24] MEDS: Furosemide 40 MG/4 ML VIAL IVPUSH ONE (10:50)
[2023-10-24 11:11] LABS: APPEARANCE,URINE CLEAR; BILIRUBIN,URINE NEGATIVE (NEGATIVE); COLOR,URINE YELLOW; GLUCOSE,URINE NEGATIVE (NEGATIVE); KETONES,URINE 40 mg/dL (NEGATIVE); LEUKOCYTE ESTERASE,URINE NEGATIVE (NEGATIVE); NITRITE,URINE NEGATIVE (NEGATIVE); OCCULT BLOOD,URINE NEGATIVE (NEGATIVE); PH,URINE 6.5 (5.0-8.0); PROTEIN,URINE NEGATIVE (NEGATIVE); UROBILINOGEN,URINE 0.2 EU/dL (<2.0)
[2023-10-24 11:52] LABS: CORONAVIRUS COVID-19 NAA NEGATIVE (NEGATIVE); INFLUENZA A NAA NEGATIVE (NEGATIVE); INFLUENZA B NAA NEGATIVE (NEGATIVE); RESPIRATORY SYNCYTIAL VIR NAA NEGATIVE (NEGATIVE)
[2023-10-24 13:34] LABS: LACTIC ACID 1.7 mmol/L (0.4-2.0)
[2023-10-24] MEDS ORDERED: Albuterol/Ipratropium 3.0-0.5 MG/3 ML Neb Soln NEB PRN (14:26)
[2023-10-24] MEDS: Acetaminophen 325 MG Tab PO PRN (15:00)
[2023-10-24] MEDS: Piperacillin/Tazobactam 3.375 GM in Sodium Chloride 0.9% 100 ML IV SCH (15:02)
[2023-10-24] MEDS: atorvaSTATin 20 MG Tab PO SCH (20:00)
[2023-10-24] MEDS: Apixaban 2.5 MG Tab PO SCH (20:01)
[2023-10-24] MEDS: Formoterol/Mometasone 200-5 MCG 8.8 GM Inhaler INH SCH (20:05)
[2023-10-24] MEDS: Furosemide 40 MG/4 ML VIAL IVPUSH SCH (20:06)
[2023-10-25 05:58] LABS: HEMATOCRIT 36.7 % (37.0-47.0); HEMOGLOBIN 12.1 g/dL (12.0-16.0); MEAN CORPUSCULAR VOLUME 97.1 fL (83.0-99.0); MEAN PLATELET VOLUME 9.1 fL (9.4-12.3); PLATELET COUNT,PLT 242 K/uL (150-400); RED BLOOD CELL COUNT 3.78 M/uL (4.10-5.30); WHITE BLOOD CELL COUNT,WBC 18.59 K/uL (3.9-11.3)
[2023-10-25 06:14] LABS: A/G RATIO 0.6 (0.9-1.6); ALBUMIN 2.2 g/dL (3.4-5.0); BILIRUBIN TOTAL 0.5 mg/dL (0.2-1.0); CALCIUM 8.1 mg/dL (8.5-10.1); CARBON DIOXIDE,CO2 27.8 mmol/L (21.0-32.0); CREATININE 0.9 mg/dL (0.6-1.0); EST CRCL DRUG DOSING (CG) 39.07 mL/min; MAGNESIUM 1.7 mg/dL (1.8-2.4); PHOSPHORUS 3.6 mg/dL (2.6-4.7); POTASSIUM,K 3.4 mmol/L (3.5-5.1); PROTEIN TOTAL,TP 5.8 g/dL (6.4-8.2)
[2023-10-25] MEDS: Digoxin 125 MCG Tab PO SCH (08:11)
[2023-10-25] MEDS: Tiotropium Bromide 4 GM Inhalation Spray (2.5mcg/1 dose; 10 doses) INH SCH (08:11)
[2023-10-25] MEDS ORDERED: cefTRIAXone 1 GM in Sodium Chloride 0.9% 50 ML IV SCH (09:00)
[2023-10-25] MEDS: Magnesium Sulfate/Water 2 GM in Premix Bag 1 BAG IV ONE (09:41)
[2023-10-25] MEDS: Potassium Chloride 20 MEQ Tab.ER PO ONE (09:42)
[2023-10-25] MEDS: Pantoprazole 40 MG Tab.CR PO SCH (09:42)
[2023-10-25] MEDS: Piperacillin/Tazobactam 4.5 GM in Sodium Chloride 0.9% 100 ML IV SCH (09:50)
[2023-10-25] MEDS ORDERED: Piperacillin/Tazobactam 3.375 GM in Sodium Chloride 0.9% 100 ML IV SCH (10:00)
[2023-10-25] MEDS: Lactated Ringers 500 ML IV ONE (11:54)
[2023-10-25] MEDS: Diltiazem 180 MG Cap.CD PO SCH (11:55)
[2023-10-26 05:43] LABS: BASOPHILS ABSOLUTE AUTO 0.02 K/uL (0.00-0.20); BASOPHILS PERCENT AUTO 0.1 % (0.0-1.0); EOSINOPHILS ABSOLUTE AUTO 0.25 K/uL (0.00-0.45); EOSINOPHILS PERCENT AUTO 1.7 % (0.0-6.0); HEMATOCRIT 35.7 % (37.0-47.0); HEMOGLOBIN 11.8 g/dL (12.0-16.0); IMMATURE GRAN ABSOLUTE AUTO 0.06 K/uL (0.00-0.05); IMMATURE GRAN PERCENT AUTO 0.4 % (0.0-0.4); LYMPHOCYTES ABSOLUTE AUTO 1.17 K/uL (1.00-4.80); LYMPHOCYTES PERCENT AUTO 7.8 % (24.0-44.0); MEAN CORPUSCULAR HEMOGLOBIN 32.3 pg (28.0-32.0); MEAN CORPUSCULAR HGB CONC 33.1 g/dL (32.0-36.0); MEAN CORPUSCULAR VOLUME 97.8 fL (83.0-99.0); MEAN PLATELET VOLUME 9.1 fL (9.4-12.3); MONOCYTES ABSOLUTE AUTO 1.16 K/uL (0.00-0.80); MONOCYTES PERCENT AUTO 7.8 % (0.0-8.0); NEUTROPHILS ABSOLUTE AUTO 12.29 K/uL (1.80-7.70); NEUTROPHILS PERCENT AUTO 82.2 % (41.0-71.0); PLATELET COUNT,PLT 250 K/uL (150-400); RED BLOOD CELL COUNT 3.65 M/uL (4.10-5.30); WHITE BLOOD CELL COUNT,WBC 14.95 K/uL (3.9-11.3)
[2023-10-26 06:10] LABS: A/G RATIO 0.6 (0.9-1.6); ALBUMIN 2.1 g/dL (3.4-5.0); BILIRUBIN TOTAL 0.4 mg/dL (0.2-1.0); CARBON DIOXIDE,CO2 26.7 mmol/L (21.0-32.0); CREATININE 0.9 mg/dL (0.6-1.0); EST CRCL DRUG DOSING (CG) 39.14 mL/min; MAGNESIUM 2.5 mg/dL (1.8-2.4); POTASSIUM,K 3.8 mmol/L (3.5-5.1); PROTEIN TOTAL,TP 5.8 g/dL (6.4-8.2)
[2023-10-26] MEDS: Ondansetron 4 MG/2 ML SDV IVPUSH ONE (09:20)
[2023-10-26] MEDS: Potassium Chloride 20 MEQ Tab.ER PO ONE (10:03)
[2023-10-26] MEDS: Polyethylene Glycol 3350 Powder 17 GM Packet PO PRN (10:12)
[2023-10-26] MEDS: traMADol 50 MG Tab PO PRN (14:20)
[2023-10-26] MEDS: Albuterol/Ipratropium 3.0-0.5 MG/3 ML Neb Soln NEB PRN (18:04)
[2023-10-26] MEDS: Sodium Chloride 0.9% 100 ML ONE (18:09)
[2023-10-26] MEDS: Amiodarone 200 MG Tab PO SCH (20:01)
[2023-10-27 06:08] LABS: BASOPHILS ABSOLUTE AUTO 0.01 K/uL (0.00-0.20); BASOPHILS PERCENT AUTO 0.1 % (0.0-1.0); EOSINOPHILS ABSOLUTE AUTO 0.16 K/uL (0.00-0.45); EOSINOPHILS PERCENT AUTO 1.4 % (0.0-6.0); HEMATOCRIT 34.3 % (37.0-47.0); HEMOGLOBIN 10.9 g/dL (12.0-16.0); IMMATURE GRAN ABSOLUTE AUTO 0.03 K/uL (0.00-0.05); IMMATURE GRAN PERCENT AUTO 0.3 % (0.0-0.4); LYMPHOCYTES ABSOLUTE AUTO 0.89 K/uL (1.00-4.80); LYMPHOCYTES PERCENT AUTO 8.1 % (24.0-44.0); MEAN CORPUSCULAR HEMOGLOBIN 31.8 pg (28.0-32.0); MEAN CORPUSCULAR HGB CONC 31.8 g/dL (32.0-36.0); MEAN PLATELET VOLUME 8.9 fL (9.4-12.3); MONOCYTES ABSOLUTE AUTO 1.14 K/uL (0.00-0.80); MONOCYTES PERCENT AUTO 10.3 % (0.0-8.0); NEUTROPHILS ABSOLUTE AUTO 8.82 K/uL (1.80-7.70); NEUTROPHILS PERCENT AUTO 79.8 % (41.0-71.0); PLATELET COUNT,PLT 265 K/uL (150-400); RED BLOOD CELL COUNT 3.43 M/uL (4.10-5.30); WHITE BLOOD CELL COUNT,WBC 11.05 K/uL (3.9-11.3)
[2023-10-27 06:33] LABS: A/G RATIO 0.5 (0.9-1.6); BILIRUBIN TOTAL 0.5 mg/dL (0.2-1.0); CARBON DIOXIDE,CO2 27.4 mmol/L (21.0-32.0); CREATININE 0.7 mg/dL (0.6-1.0); EST CRCL DRUG DOSING (CG) 51.23 mL/min; PROTEIN TOTAL,TP 5.7 g/dL (6.4-8.2)
[2023-10-27] MEDS: Ondansetron 4 MG Tab.DIS PO PRN (13:03)
[2023-10-27] MEDS: Furosemide 20 MG/2 ML VIAL IVPUSH ONE (17:42)
[2023-10-27] MEDS: LORazepam 2 MG/ML SDV IVPUSH PRN (18:36)
[2023-10-28 06:01] LABS: BASOPHILS ABSOLUTE AUTO 0.03 K/uL (0.00-0.20); BASOPHILS PERCENT AUTO 0.3 % (0.0-1.0); EOSINOPHILS ABSOLUTE AUTO 0.12 K/uL (0.00-0.45); EOSINOPHILS PERCENT AUTO 1.4 % (0.0-6.0); HEMOGLOBIN 11.1 g/dL (12.0-16.0); IMMATURE GRAN ABSOLUTE AUTO 0.03 K/uL (0.00-0.05); IMMATURE GRAN PERCENT AUTO 0.3 % (0.0-0.4); LYMPHOCYTES ABSOLUTE AUTO 0.91 K/uL (1.00-4.80); LYMPHOCYTES PERCENT AUTO 10.5 % (24.0-44.0); MEAN CORPUSCULAR HEMOGLOBIN 31.9 pg (28.0-32.0); MEAN CORPUSCULAR HGB CONC 31.7 g/dL (32.0-36.0); MEAN CORPUSCULAR VOLUME 100.6 fL (83.0-99.0); MEAN PLATELET VOLUME 8.8 fL (9.4-12.3); MONOCYTES ABSOLUTE AUTO 1.05 K/uL (0.00-0.80); MONOCYTES PERCENT AUTO 12.1 % (0.0-8.0); NEUTROPHILS ABSOLUTE AUTO 6.54 K/uL (1.80-7.70); NEUTROPHILS PERCENT AUTO 75.4 % (41.0-71.0); PLATELET COUNT,PLT 301 K/uL (150-400); RED BLOOD CELL COUNT 3.48 M/uL (4.10-5.30); WHITE BLOOD CELL COUNT,WBC 8.68 K/uL (3.9-11.3)
[2023-10-28 06:15] LABS: CALCIUM 8.2 mg/dL (8.5-10.1); CARBON DIOXIDE,CO2 28.5 mmol/L (21.0-32.0); CREATININE 0.7 mg/dL (0.6-1.0); EST CRCL DRUG DOSING (CG) 50.96 mL/min; POTASSIUM,K 3.8 mmol/L (3.5-5.1)
[2023-10-28] MEDS: Furosemide 20 MG Tab PO SCH (13:01)
[2023-10-29 06:12] LABS: BASOPHILS ABSOLUTE AUTO 0.02 K/uL (0.00-0.20); BASOPHILS PERCENT AUTO 0.2 % (0.0-1.0); EOSINOPHILS ABSOLUTE AUTO 0.15 K/uL (0.00-0.45); EOSINOPHILS PERCENT AUTO 1.5 % (0.0-6.0); HEMATOCRIT 37.4 % (37.0-47.0); HEMOGLOBIN 12.1 g/dL (12.0-16.0); IMMATURE GRAN ABSOLUTE AUTO 0.04 K/uL (0.00-0.05); IMMATURE GRAN PERCENT AUTO 0.4 % (0.0-0.4); LYMPHOCYTES ABSOLUTE AUTO 1.24 K/uL (1.00-4.80); LYMPHOCYTES PERCENT AUTO 12.4 % (24.0-44.0); MEAN CORPUSCULAR HEMOGLOBIN 32.2 pg (28.0-32.0); MEAN CORPUSCULAR HGB CONC 32.4 g/dL (32.0-36.0); MEAN CORPUSCULAR VOLUME 99.5 fL (83.0-99.0); MEAN PLATELET VOLUME 8.7 fL (9.4-12.3); MONOCYTES ABSOLUTE AUTO 1.27 K/uL (0.00-0.80); MONOCYTES PERCENT AUTO 12.7 % (0.0-8.0); NEUTROPHILS ABSOLUTE AUTO 7.29 K/uL (1.80-7.70); NEUTROPHILS PERCENT AUTO 72.8 % (41.0-71.0); PLATELET COUNT,PLT 355 K/uL (150-400); RED BLOOD CELL COUNT 3.76 M/uL (4.10-5.30); WHITE BLOOD CELL COUNT,WBC 10.01 K/uL (3.9-11.3)
[2023-10-29 06:44] LABS: A/G RATIO 0.5 (0.9-1.6); BILIRUBIN TOTAL 0.4 mg/dL (0.2-1.0); CALCIUM 8.3 mg/dL (8.5-10.1); CARBON DIOXIDE,CO2 29.8 mmol/L (21.0-32.0); CREATININE 0.8 mg/dL (0.6-1.0); EST CRCL DRUG DOSING (CG) 45.26 mL/min; MAGNESIUM 1.9 mg/dL (1.8-2.4); POTASSIUM,K 3.7 mmol/L (3.5-5.1)
[2023-10-29] MEDS: Benzonatate 100 MG Cap PO PRN (14:48)
[2023-10-30 05:28] LABS: BASOPHILS ABSOLUTE AUTO 0.03 K/uL (0.00-0.20); BASOPHILS PERCENT AUTO 0.3 % (0.0-1.0); EOSINOPHILS PERCENT AUTO 2.2 % (0.0-6.0); HEMATOCRIT 39.9 % (37.0-47.0); HEMOGLOBIN 12.8 g/dL (12.0-16.0); IMMATURE GRAN ABSOLUTE AUTO 0.07 K/uL (0.00-0.05); IMMATURE GRAN PERCENT AUTO 0.8 % (0.0-0.4); LYMPHOCYTES ABSOLUTE AUTO 1.48 K/uL (1.00-4.80); LYMPHOCYTES PERCENT AUTO 16.1 % (24.0-44.0); MEAN CORPUSCULAR HEMOGLOBIN 32.2 pg (28.0-32.0); MEAN CORPUSCULAR HGB CONC 32.1 g/dL (32.0-36.0); MEAN CORPUSCULAR VOLUME 100.3 fL (83.0-99.0); MEAN PLATELET VOLUME 8.6 fL (9.4-12.3); MONOCYTES ABSOLUTE AUTO 0.79 K/uL (0.00-0.80); MONOCYTES PERCENT AUTO 8.6 % (0.0-8.0); PLATELET COUNT,PLT 409 K/uL (150-400); RED BLOOD CELL COUNT 3.98 M/uL (4.10-5.30); WHITE BLOOD CELL COUNT,WBC 9.17 K/uL (3.9-11.3)
[2023-10-30 06:03] LABS: A/G RATIO 0.5 (0.9-1.6); BILIRUBIN TOTAL 0.4 mg/dL (0.2-1.0); CARBON DIOXIDE,CO2 28.7 mmol/L (21.0-32.0); CREATININE 0.8 mg/dL (0.6-1.0); EST CRCL DRUG DOSING (CG) 45.26 mL/min; MAGNESIUM 1.9 mg/dL (1.8-2.4); POTASSIUM,K 3.7 mmol/L (3.5-5.1); PROTEIN TOTAL,TP 6.2 g/dL (6.4-8.2)
[2023-10-31 05:57] LABS: BASOPHILS ABSOLUTE AUTO 0.02 K/uL (0.00-0.20); BASOPHILS PERCENT AUTO 0.3 % (0.0-1.0); EOSINOPHILS ABSOLUTE AUTO 0.17 K/uL (0.00-0.45); EOSINOPHILS PERCENT AUTO 2.5 % (0.0-6.0); HEMATOCRIT 36.2 % (37.0-47.0); HEMOGLOBIN 11.7 g/dL (12.0-16.0); IMMATURE GRAN ABSOLUTE AUTO 0.09 K/uL (0.00-0.05); IMMATURE GRAN PERCENT AUTO 1.3 % (0.0-0.4); LYMPHOCYTES ABSOLUTE AUTO 1.16 K/uL (1.00-4.80); LYMPHOCYTES PERCENT AUTO 17.2 % (24.0-44.0); MEAN CORPUSCULAR HEMOGLOBIN 31.5 pg (28.0-32.0); MEAN CORPUSCULAR HGB CONC 32.3 g/dL (32.0-36.0); MEAN CORPUSCULAR VOLUME 97.6 fL (83.0-99.0); MEAN PLATELET VOLUME 8.7 fL (9.4-12.3); MONOCYTES ABSOLUTE AUTO 0.65 K/uL (0.00-0.80); MONOCYTES PERCENT AUTO 9.6 % (0.0-8.0); NEUTROPHILS ABSOLUTE AUTO 4.66 K/uL (1.80-7.70); NEUTROPHILS PERCENT AUTO 69.1 % (41.0-71.0); PLATELET COUNT,PLT 411 K/uL (150-400); RED BLOOD CELL COUNT 3.71 M/uL (4.10-5.30); WHITE BLOOD CELL COUNT,WBC 6.75 K/uL (3.9-11.3)
[2023-10-31 06:23] LABS: A/G RATIO 0.5 (0.9-1.6); ALBUMIN 1.8 g/dL (3.4-5.0); BILIRUBIN TOTAL 0.3 mg/dL (0.2-1.0); CALCIUM 8.7 mg/dL (8.5-10.1); CARBON DIOXIDE,CO2 29.5 mmol/L (21.0-32.0); CREATININE 0.7 mg/dL (0.6-1.0); EST CRCL DRUG DOSING (CG) 51.11 mL/min; POTASSIUM,K 3.3 mmol/L (3.5-5.1); PROTEIN TOTAL,TP 5.5 g/dL (6.4-8.2)
[2023-10-31] MEDS: Potassium Chloride 20 MEQ Tab.ER PO ONE (09:14)
[2023-10-31] MEDS: Magnesium Oxide 400 MG Tab PO ONE (09:40)
[2023-10-31] MEDS: Amoxicillin/Clavulanate K 875-125 MG Tab PO ONE (11:09)
== END 2023-10-31 13:45 | disposition home or self-care (01) | DRG 602 ==
LOC: MW.ED 08:11 → EEVIPCON 11:20 → MW.ICU 11:20 → MW.MS 10-28 14:50
PROVIDERS: ADMIT Internal Medicine; ATTEND Internal Medicine
DX: L03.115 Cellulitis of right lower limb (principal); I50.33 Acute on chronic diastolic (congestive) heart failure; L03.116 Cellulitis of left lower limb; L97.819 Non-pressure chronic ulcer of other part of right lower leg with unspecified severity; J44.9 Chronic obstructive pulmonary disease, unspecified; J44.0 Chronic obstructive pulmonary disease with (acute) lower respiratory infection; E87.20 Acidosis, unspecified; J44.1 Chronic obstructive pulmonary disease with (acute) exacerbation; I48.0 Paroxysmal atrial fibrillation; I11.0 Hypertensive heart disease with heart failure; M06.9 Rheumatoid arthritis, unspecified; H54.7 Unspecified visual loss; J20.9 Acute bronchitis, unspecified; Z79.899 Other long term (current) drug therapy; Z79.51 Long term (current) use of inhaled steroids; Z79.01 Long term (current) use of anticoagulants; Z98.890 Other specified postprocedural states
CPT/HCPCS: 0241U; 36415; 71045; 71250; 73590; 74177; 80048; 80053; 80162; 80202; 81003; 82803; 82947; 83605; 83690; 83735; 83880; 84100; 84484; 85025; 85027; 85610; 85730; 87040; 87338; 87641; 93005; 96365; 96366; 96367; 96368; 96375; 97110; 97162; 97530; 99285; 93010; 99223; 99232; 99233; 99239; 99291; A9270-GY; J0282; J0692; J1940; J2060; J2405; J2543; J3370; J3475; J3490; J7050; J7120; J7620-GY; Q9967

== ENCOUNTER 2023-10-31 22:00 | Observation (INO) | payer MEDICARE, BC ==
[2023-10-31] MEDS: Albuterol/Ipratropium 3.0-0.5 MG/3 ML Neb Soln NEB ONE (22:23)
[2023-10-31] MEDS: Ondansetron 4 MG/2 ML SDV IVPUSH ONE (22:23)
[2023-10-31] MEDS: Sodium Chloride 0.9% 10 ML Syringe FLUSH PRN (22:23)
[2023-10-31] MEDS: Magnesium Sulfate/Water 2 GM in Premix Bag 1 BAG IV ONE (22:23)
[2023-10-31] MEDS: Sodium Chloride 0.9% 2.5 ML Syringe FLUSH PRN (22:23)
[2023-10-31 22:40] LABS: BASE EXCESS VENOUS 2.3 (-2.0-3.0); BASOPHILS ABSOLUTE AUTO 0.05 K/uL (0.00-0.20); BASOPHILS PERCENT AUTO 0.3 % (0.0-1.0); EOSINOPHILS ABSOLUTE AUTO 0.02 K/uL (0.00-0.45); EOSINOPHILS PERCENT AUTO 0.1 % (0.0-6.0); HEMATOCRIT 42.7 % (37.0-47.0); HEMOGLOBIN 14.1 g/dL (12.0-16.0); IMMATURE GRAN ABSOLUTE AUTO 0.18 K/uL (0.00-0.05); LYMPHOCYTES ABSOLUTE AUTO 0.97 K/uL (1.00-4.80); LYMPHOCYTES PERCENT AUTO 5.6 % (24.0-44.0); MEAN CORPUSCULAR HEMOGLOBIN 32.1 pg (28.0-32.0); MEAN CORPUSCULAR VOLUME 97.3 fL (83.0-99.0); MEAN PLATELET VOLUME 8.5 fL (9.4-12.3); MONOCYTES ABSOLUTE AUTO 0.88 K/uL (0.00-0.80); MONOCYTES PERCENT AUTO 5.1 % (0.0-8.0); NEUTROPHILS ABSOLUTE AUTO 15.18 K/uL (1.80-7.70); NEUTROPHILS PERCENT AUTO 87.9 % (41.0-71.0); PH,VENOUS 7.39 (7.31-7.41); PLATELET COUNT,PLT 497 K/uL (150-400); RED BLOOD CELL COUNT 4.39 M/uL (4.10-5.30); WHITE BLOOD CELL COUNT,WBC 17.28 K/uL (3.9-11.3)
[2023-10-31 22:54] LABS: INR 1.07 (0.86-1.11)
[2023-10-31] MEDS: Iopamidol 755 MG/ML 500 ML Multipack Bottle IVPUSH STA (23:09)
[2023-10-31] MEDS: Cefepime 2 GM in Sodium Chloride 0.9% 50 ML IV ONE (23:13)
[2023-10-31 23:16] LABS: ALBUMIN 2.3 g/dL (3.4-5.0); BILIRUBIN TOTAL 0.5 mg/dL (0.2-1.0); CALCIUM 9.3 mg/dL (8.5-10.1); CARBON DIOXIDE,CO2 27.7 mmol/L (21.0-32.0); CREATININE 0.9 mg/dL (0.6-1.0); DIGOXIN 0.6 ng/mL (0.9-2.0); EST CRCL DRUG DOSING (CG) 39.16 mL/min; MAGNESIUM 1.8 mg/dL (1.8-2.4); POTASSIUM,K 4.2 mmol/L (3.5-5.1); PROTEIN TOTAL,TP 6.5 g/dL (6.4-8.2)
[2023-10-31 23:19] LABS: A/G RATIO 0.6 (0.9-1.6)
[2023-10-31 23:25] LABS: LACTIC ACID 1.5 mmol/L (0.4-2.0)
[2023-11-01] MEDS: Acetaminophen 325 MG Tab PO ONE (00:32)
[2023-11-01] MEDS: Sodium Chloride 0.9% 500 ML IV SCH (01:27)
[2023-11-01 06:14] LABS: BASOPHILS ABSOLUTE AUTO 0.04 K/uL (0.00-0.20); BASOPHILS PERCENT AUTO 0.4 % (0.0-1.0); HEMATOCRIT 36.5 % (37.0-47.0); HEMOGLOBIN 11.9 g/dL (12.0-16.0); IMMATURE GRAN ABSOLUTE AUTO 0.09 K/uL (0.00-0.05); IMMATURE GRAN PERCENT AUTO 0.8 % (0.0-0.4); LYMPHOCYTES PERCENT AUTO 10.9 % (24.0-44.0); MEAN CORPUSCULAR HEMOGLOBIN 31.6 pg (28.0-32.0); MEAN CORPUSCULAR HGB CONC 32.6 g/dL (32.0-36.0); MEAN CORPUSCULAR VOLUME 97.1 fL (83.0-99.0); MEAN PLATELET VOLUME 8.8 fL (9.4-12.3); MONOCYTES ABSOLUTE AUTO 0.67 K/uL (0.00-0.80); MONOCYTES PERCENT AUTO 6.1 % (0.0-8.0); NEUTROPHILS ABSOLUTE AUTO 9.03 K/uL (1.80-7.70); NEUTROPHILS PERCENT AUTO 81.8 % (41.0-71.0); PLATELET COUNT,PLT 443 K/uL (150-400); RED BLOOD CELL COUNT 3.76 M/uL (4.10-5.30); WHITE BLOOD CELL COUNT,WBC 11.03 K/uL (3.9-11.3)
[2023-11-01 06:42] LABS: CALCIUM 8.8 mg/dL (8.5-10.1); CARBON DIOXIDE,CO2 27.8 mmol/L (21.0-32.0); CREATININE 0.9 mg/dL (0.6-1.0); EST CRCL DRUG DOSING (CG) 40.71 mL/min; MAGNESIUM 2.1 mg/dL (1.8-2.4); POTASSIUM,K 4.1 mmol/L (3.5-5.1)
[2023-11-01] MEDS: Cefepime 2 GM in Sodium Chloride 0.9% 50 ML IV SCH (08:45)
[2023-11-01] MEDS: Apixaban 2.5 MG Tab PO SCH (08:45)
[2023-11-01] MEDS: Amiodarone 200 MG Tab PO SCH (08:45)
[2023-11-01] MEDS: Digoxin 125 MCG Tab PO SCH (08:45)
[2023-11-01] MEDS: Diltiazem 180 MG Cap.CD PO SCH (08:45)
[2023-11-01] MEDS ORDERED: Diltiazem 180 MG Cap.CD PO SCH (09:00)
[2023-11-01] MEDS: Furosemide 20 MG/2 ML VIAL IVPUSH ONE (11:10)
[2023-11-01] MEDS: Acetaminophen 325 MG Tab PO PRN (12:28)
== END 2023-11-01 15:00 ==
LOC: MW.ED 22:00 → MW.MS 11-01 01:21
PROVIDERS: ADMIT Family Medicine; ATTEND Family Medicine
DX: J18.9 Pneumonia, unspecified organism (principal); I11.0 Hypertensive heart disease with heart failure; I50.9 Heart failure, unspecified; K86.1 Other chronic pancreatitis; K57.30 Diverticulosis of large intestine without perforation or abscess without bleeding; J44.9 Chronic obstructive pulmonary disease, unspecified; I48.91 Unspecified atrial fibrillation; Z79.01 Long term (current) use of anticoagulants; Z79.899 Other long term (current) drug therapy
CPT/HCPCS: 36415; 71045; 71250; 74177; 80048; 80053; 80162; 82803; 83605; 83690; 83735; 83880; 84484; 85025; 85610; 85730; 87040; 93005; 96361; 96365; 96366; 96368; 96375; 99285; A9270; J0692; J1940; J2405; J3370; J3475; J3490; J7040; J7050; Q9967; 93010; 96376; 99236; 99291; G0378; J7620-GY